=== PATIENT | female | born 1990 | race African-American/Black ===

== ENCOUNTER → 2019-09-21 | Emergency (ER) | payer MEDICAID, OTHER ==
[~2019-09-21] VITALS: Ht 149.9 cm; Wt 70.8 kg
[2019-09-21 13:00] VITALS: BP 146/74
== END | disposition home or self-care (01) ==
LOC: ER 11:23
DX: R07.89 Other chest pain (principal); R06.02 Shortness of breath; R19.7 Diarrhea, unspecified; Z90.49 Acquired absence of other specified parts of digestive tract; Z20.828 Contact with and (suspected) exposure to other viral communicable diseases
CPT/HCPCS: 71045; 99284; U0003